=== PATIENT | female | born 1950 | race Caucasian/White ===

== ENCOUNTER → 2018-02-02 | Outpatient (CLI) | payer OTHER ==
--- NOTE | ~2018-02-02 | EKG ---
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
[2018-02-02 12:07] LABS: HEMATOCRIT 43.7 % (37.0-47.0); HEMOGLOBIN 14.5 gm/dL (12.0-15.0); MCH 29.2 pg (26.0-34.0); MCHC 33.1 g/dL (28.0-37.0); MCV 88.2 fL (80.0-100.0); RBC 4.95 mil/uL (4.20-5.00); RDW 14.2 % (10.5-14.5); WBC 16.6 thou/uL (4.0-11.0)
[2018-02-02 12:29] LABS: ALBUMIN 4.6 g/dL (3.4-5.0); MAGNESIUM 2.4 mg/dL (1.8-2.4); PHOSPHORUS 4.2 mg/dL (2.5-4.9); POTASSIUM 3.6 mmol/L (3.5-5.1); TOTAL BILIRUBIN 1.1 mg/dL (<0.1-1.0); TOTAL PROTEIN 7.7 g/dL (6.4-8.2)
== END ==
LOC: LABMALL 11:23
PROVIDERS: Otolaryngology Plastic Surgery within the Head & Neck
DX: D48.0 Neoplasm of uncertain behavior of bone and articular cartilage (principal)

== ENCOUNTER 2018-02-19 06:48 | Day surgery (SDC) | payer OTHER ==
[~2018-02-19] VITALS: Ht 167.6 cm; Wt 64.0 kg
[2018-02-19] VITALS (8 sets, daily range): BP systolic 124–156; BP diastolic 69–77
--- NOTE | ~2018-02-19 | O ---
[facility] [place] [address] OPERATIVE REPORT Name: SHAMIR GILMORE Room #: DE[place] [facility] M..#: [id number] Admission: 02/19/18 Attend Phys: Burak Last MD Discharge: 02/20/18 Date of : 50 Report #: [id number] THIS REPORT FOR: //name// CC: Kuldip Moctezuma DDS DATE OF SERVICE: 02/19/2018 PREOPERATIVE DIAGNOSIS: Central giant cell tumor, maxilla. POSTOPERATIVE DIAGNOSIS: Central giant cell tumor, maxilla. OPERATION PERFORMED: 1. Left anterior maxilla crossing midline. 2. Partial excision, nasal septum. 3. Extraction teeth #7-#13. 4. Radical excision, hard palate. SURGEON: Burak Last MD SAP BASIS: OR staff. ANESTHESIA: General endotracheal. INDICATIONS: The patient is a 68-year-old female presenting on referral from her oral surgeon, Dr. Moctezuma for evaluation of a palatal mass. This has been an expansile mass of the hard palate just posterior to the central and lateral incisor and extending posteriorly. This did cross midline. The patient noted this as she felt abnormal with her tongue. She was otherwise asymptomatic. Dental x-rays have been done that have been unremarkable, but since this has continued to grow, her dental hygienist recommended that this be evaluated. CT scan confirmed a very large tumor in the anterior maxilla crossing midline, left to right and extending with erosion into the nasal septum. This bulged into the nasal fossa bilaterally and involved the majority of the hard palate. A 4 mm punch biopsy was done showing a giant cell proliferation concerning for central giant cell tumor. In light of the above, calcium, magnesium, phosphorus and PTH were ordered to exclude any parathyroid brown tumor. These findings were normal. Chest x-ray was done to rule out any metastases to the lung. This was also normal. Recommendations were made for excision. We did talk about options of the curettement and enucleation versus wide local excision. Unfortunately, the rate of recurrence for curettement borders around 35%, whereas wide local excision carries with a rate of less than 5%. For that reason, I have recommended [address] [address] OPERATIVE REPORT Name: KIMBERLY CISNEROSSHAMIR Thurston Room #: DEP [facility] [place].R.#: [id number] Admission: 02/19/18 Attend Phys: Burak Last MD Discharge: 02/20/18 Date of : 50 Report #: [id number] definitive excision and close followup in the future. Because of its location and the need to extract at least from canine on the right to molar on the left, this will need reconstruction with an obturator. The patient has met with Dr. Corona and prosthesis has been designed. The patient understands that this will require ultimately several reconstructions of this to create a full denture with superstructure. DESCRIPTION OF PROCEDURE: The patient was brought to the operating room and placed supine on the operating table. After adequate general anesthesia was achieved via endotracheal oral intubation, she was turned 180 degrees on a Hdez headrest. Shoulder roll was placed, the neck was extended and the patient was prepped and draped in a sterile fashion. Procedure began with an outlining of the gross tumor in anticipation of wide local excision. The tumor involved the majority of the hard palate, especially to the left and extended across midline to the right. It seemed apparent that I could spare the majority of the teeth on the right maxillary arch and extraction of #7 was done individually, so that this could be evaluated as adequacy of removal. At this point, incisions were made along the anterior gingiva and this was then elevated up to the nasal fossa. Bilateral marginal incisions were made in the nasal fossa and 1-inch [place] drain passed through each naris in midface degloving approach so that the anterior maxilla could be fully visualized. These were held back with forceps taking care to avoid her orbit. Similarly, incisions were made along the dental papilla on the hard palate and the hard palate mucosa elevated. It seemed apparent that this was adherent to the underlying tumor and it was decided that instead of trying to preserve this, that this would need to be removed en bloc with the tumor. Opposite #7, a Kerr[place] rongeur was used to take down the bone of the pyriform aperture and then attempted to elevate the mucosa on the floor of the nose. Prior to doing this, video prints had been taken of the tumor in the nose bulging the floor of nose. It again became apparent that the nasal mucosa was intermittent with the tumor and it was elected to sacrifice the mucosa of the floor of nose. As the tumor crossed midline and involved a portion of the septum, a double action scissor was used to cut the septum off the maxillary crest, leaving the maxillary crest and maxillary spine as part of the specimen. Once the tumor was outlined, dissection then began on the left lateral maxilla in anticipation of a lower superstructure maxillectomy. Because of the friable and vascular nature of this tumor, a 3 mm lachelle bur was utilized to take down the maxilla and to seal the vessels with reverse speed on the drill as I went. Dissection was then continued from anterior to posterior down to #13. This seemed to be the extent of the posterior tumor on the left side as it did seem to veer to the midline to the posterior edge of the hard palate. It seemed that I would be able to spare #14 and #15. At this point, an attempt was made to remove #13. There was the 3 tooth bridge, #12, #13 and #14. This bridge was popped off. There was decay underneath. A #13 had been previously excised and/or extracted. This made a nice entry across the alveolar ridge. The #3 lachelle bur was then used to take down this bone in between #12 and #14. Again, no tumor was encountered as this [facility] [address] [place] [address] OPERATIVE REPORT Name: ENRIQUELIBBY BLAYNESHAMIR Thurston [id number] Admission: 02/19/18 Attend Phys: Burak Last MD Discharge: 02/20/18 Date of : 50 Report #: [id number] was done. The dissection then continued as the tumor then moved to the midline and extended posteriorly to the edge of the hard palate. Dissection was made along the hard palate all the way to its edge meeting the soft palate. Once this was adequately identified, attention was then returned to the maxillectomy excision of the hard palate to the right of midline. The tumor did cross midline. Using a sagittal saw, this bony incision was made along the hard palate from anterior to posterior. This allowed the maxilla to begin to rock loose. Attention was then turned back to the left side. The greater palatine artery was identified in its foramen. I was able to spare this and this was mobilized laterally as the medial incision was made along the hard palate. This was again carried back to the free edge of the hard palate with soft palate. Attachments of soft palate were then taken down and then the maxilla downfractured, so that the attachments intranasal could be taken down along the posterior nasal septum. This freed the maxillectomy specimen completely. This was then taken out of the patient on to the back table for examination. The tumor was not breached. Wide excision was done around it with adequate margins. The maxillectomy specimen was left with tooth #8 through #12. The video prints were then taken of the tumor and the tumor was then delivered off the field as specimen to pathology. The tumor was very brown consistent with hemosiderin deposits as expected. Frozen section was not done, but the tumor was opened by the pathologist and found to be a solid mass with voids and hemosiderin-laden old blood present. At this point, attention was then turned to reconstruction. The edges of the bone were then drilled with the 3 mm lachelle to smooth the edges and also to assure that there was no other tumor present. Once this was adequately assessed, the mucosa of the nose was closed to the mucosa of the palate with a running locked 4-0 Vicryl. A 4-0 chromic was used to close the mucosa over the free edge of the amputated nasal septum inferiorly and then holes were drilled in the anterior maxilla on each side so that the gingival mucosa that had been elevated could be sutured to the free edge of the bone giving coverage to this bone. Exposure had been done in the maxillectomy of the maxillary sinus on both sides, but I was able to preserve the mucosa of the maxillary sinus intact and it was left alone. Once closure was achieved, the Surgicel was placed along the free edge of the bone on each side to prevent bleeding. Hemostasis was assured prior to that with bipolar cauterization. Because of the drill being used, there was minimal bleeding of the bone. At this point, the previously created obturator by Dr. Corona was soaked in Betadine and then cleaned with saline and placed into her mouth. Because I was able to preserve more teeth than expected, customization was done of the obturator with a 5 mm bur to scallop for the remaining teeth. As I had also preserved #14 on the left, a space had to be made in the obturator for this as well with the drill. Customization was done back and forth with the patient to the obturator until I was satisfied that this fit perfectly. Prior to closure, Xerogel was placed under the maxillary sinus on each side. The obturator was then placed into position. Holes had been drilled in it prior to placement, so that it could be sutured to the maxillary bone laterally. Once the obturator was placed in place, two silk sutures were placed anteriorly to secure it. The [address] [address] OPERATIVE REPORT Name: SHAMIR GILMORE [facility] [id number] Admission: 02/19/18 Attend Phys: Burak Last MD Discharge: 02/20/18 Date of : 50 Report #: [id number] patient was then returned to anesthesia, awake without difficulty, returned to recovery in good condition. Sponge and needle counts were correct. There were no complications. Blood loss was about 50 mL. She will be watched overnight for monitoring. The patient may require a several day hospitalization as swallowing will be the main problem with the obturator in place. Discharge medications will include clindamycin 300 mg t.i.d. for 10 days, hydrocodone/acetaminophen 7.5/325 one to two q. 4-6 hours p.r.n., Phenergan suppository 25 mg 1 per rectum q. 4-6 hours p.r.n. She is instructed on light activity and soft diet. The patient understands she will require multiple fittings with Dr. Corona for the maxillary obturator superstructure and eventually creation of a denture. <ELECTRONICALLY SIGNED> By: Burak Last MD 02/26/18 1644 1536 1836 Burak Last MD /nt
--- NOTE | ~2018-02-19 | S ---
[facility] [address] [place] [address] SURGICAL PATH RPT PROCEDURE Name: SHAMIR GILMORE Room #: 401[place] [facility] [place].R.#: [id number] Admission: 02/19/18 Date of : 50 Discharge: Report #: [id number] Path Case #: [id number] PATHOLOGY REPORT DRAFT COLLECTION DATE: 02/19/2018 RECEIVED DATE: 02/19/2018 SPECIMEN(S) RECEIVED: A.Maxillectomy with # 8 - 13 B.Tooth #7 C.Bridge #14, 13 and 12
[~2018-02-19 06:48] MED LIST: ASPIR 8181 M1 PO; ATENOLOL 50MG T50 M1 PO; CRESTOR20 MG PO; HYDROCHLOROTH12.5 M2 PO; LOTENSIN20 MG PO; VITAMIN E400 UNIT PO; WELLBUTRIN XL150 MG PO
[2018-02-19] MEDS ORDERED: PROMS25 WY RECTAL (15:48)
[2018-02-19] MEDS ORDERED: CLEOCIN HCL150 MG PO (15:49)
[2018-02-19] MEDS ORDERED: NORCO 7.5-3251 EACH PO (15:50)
[2018-02-20] VITALS: BP 137/62
[2018-02-20 04:00] VITALS: BP 147/88
[2018-02-20 08:01] VITALS: BP 122/66
[2018-02-20 08:57] LABS: HEMATOCRIT 32.7 % (37.0-47.0); HEMOGLOBIN 10.9 gm/dL (12.0-15.0); MCH 29.2 pg (26.0-34.0); MCHC 33.2 g/dL (28.0-37.0); MCV 87.8 fL (80.0-100.0); RBC 3.73 mil/uL (4.20-5.00); RDW 14.2 % (10.5-14.5); WBC 24.6 thou/uL (4.0-11.0)
[2018-02-20 09:04] LABS: CALCIUM 8.8 mg/dL (8.5-10.1); POTASSIUM 3.2 mmol/L (3.5-5.1)
[2018-02-20 15:36] VITALS: BP 138/78
[2018-02-20 18:50] VITALS: BP 138/78
== END 2018-02-20 19:36 | disposition home or self-care (01) ==
LOC: TBA 06:48 → OR 06:48 → TBA 06:49 → OR 07:06 → TBA 16:45 → 4N 17:33 → OR 02-20 19:36
PROVIDERS: Otolaryngology Plastic Surgery within the Head & Neck
DX: M27.1 Giant cell granuloma, central (principal)
CPT/HCPCS: 10790; 50010; 50101; 50386; 50398; 50455; 50505; 51412; 52023; 52190; 52220; 52225; 52287; 53010; 53618; 56524; 56526; 56527; 56528; 56651; 56668; 56760; 57006; 62110; 62900; 70005